=== PATIENT | female | born 1950 | race Caucasian/White ===

== ENCOUNTER 2020-04-06 14:16 | Outpatient (CLI) | payer MEDICARE, OTHER, SELFPAY ==
[2020-04-06 15:12] LABS: Add Urine Microscopic? YES; Appearance Urine Clear (Clear); Bacteria Urine Trace /hpf; Bilirubin Urine Negative (Negative); Blood Urine Negative (Negative); Color Urine Amber (Yellow); Glucose Urine UA Negative (Negative); Ketones Urine Trace mg/dL (Negative); Leukocyte Esterase Ur Negative LEU/UL (Negative); Mucus Urine Rare /lpf; Nitrate Urine Negative (Negative); Protein Urine Negative (Negative); RBC Urine 0-2 /hpf (0-2); Specific Grav Ur 1.018 (1.001-1.035); Squamous Epithelial Cell Urine Few /hpf (Few); WBC Urine 0-3 /hpf
[2020-04-06 15:32] LABS: Basophils Percent Auto 0.3 % (0.2-1.2); Eosinophils Percent Auto 0.7 % (0-4.4); Hematocrit 40.9 % (37.0-47.0); Hemoglobin 14.2 g/dL (12.0-15.0); Immature Granulocyte Absolute 0.02 K/mm3 (0.00-0.031); Immature Granulocyte Percent A 0.3 % (0-0.5); Lymphocytes Absolute Auto 1.05 K/mm3 (0.9-3.2); Lymphocytes Percent Auto 17.9 % (18.3-44.2); Mean Corpuscular HGB Conc 34.7 g/dl (32-36); Mean Corpuscular Hemoglobin 34.3 pg (26-34); Mean Corpuscular Volume 98.8 fl (80-100); Mean Platelet Volume 10.1 fl (7.4-10.4); Monocytes Absolute Auto 0.9 K/mm3 (0.1-0.6); Neutrophils Absolute Auto 3.8 K/mm3 (1.3-6.7); Neutrophils Percent Auto 65.8 % (45.5-73.1); Platelet Count Result 239 k/mm3 (150-375); Red Blood Count 4.14 M/mm3 (4.2-5.4); Red Cell Distribution Width 13.8 % (11.5-14.5); White Blood Count 5.9 K/mm3 (4.5-10.0)
[2020-04-06 17:30] LABS: Folic Acid 10.7 ng/mL (2.76->20)
== END 2020-04-06 14:17 | disposition home or self-care (01) ==
PROVIDERS: PCP Internal Medicine; Visit Provider Internal Medicine
DX: R30.0 Dysuria (principal); R53.83 Other fatigue
CPT/HCPCS: 36415; 81001; 82607; 82746; 84443; 85025

== ENCOUNTER 2020-05-19 12:25 | Emergency (ER) | payer MEDICARE, OTHER, SELFPAY ==
--- NOTE | ~2020-05-19 | CT_ITS ---
EXAMINATION: CT cervical spine wo con DATE: 05/19/2020 13:16 INDICATION: Head injury. TECHNIQUE: Computed tomography (CT) of the cervical spine was performed without intravenous contrast. Automated exposure control and iterative reconstruction technique were employed. The dose-length pro duct was 124.19 mGy-cm. COMPARISON: CT cervical spine 06/02/2018 FINDINGS: There is mild scarring at the lung apices. There is 12 degrees dextroscoliosis of cervical spine. There is kyphosis of cervical spine. There is 2 mm anterolisthesis of C3 on C4 and C4 on C5. V ertebral body heights are normal. There is mildly decreased disc height at C4-C5 and moderately decre ased disc height at C5-C6. The following disc levels are specifically discussed: C2-C3: There is no uncovertebral joint osteoarthritis. There is ankylosis of the facet joints with mi ld hypertrophy on the right and severe hypertrophy of the left. There is mild left neural foraminal s tenosis. There is no central canal stenosis. C3-C4: There is no uncovertebral joint osteoarthritis. There is severe bilateral facet joint osteoart hritis. There is moderate left neural foraminal stenosis. There is no central canal stenosis. C4-C5: There is no uncovertebral joint osteoarthritis. There is severe bilateral facet joint osteoart hritis. There is mild bilateral neural foraminal stenosis. There is no central canal stenosis. C5-C6: There is moderate and mild left uncovertebral joint osteoarthritis. There is mild right and se darrin left facet joint osteoarthritis. There is mild right and moderate left neural foraminal stenosis . There is no central canal stenosis. C6-C7: There is no uncovertebral joint osteoarthritis. There is no facet joint osteoarthritis. There is no neural foraminal stenosis. There is no central canal stenosis. C7-T1: There is no uncovertebral joint osteoarthritis. There is moderate right and severe left facet joint osteoarthritis. There is no neural foraminal stenosis. There is no central canal stenosis. IMPRESSION: 1. No fracture. 2. Moderate cervical spondylosis. 3. Cervical dextroscoliosis and kyphosis. Reviewed, dictated and finalized at location A.
--- NOTE | ~2020-05-19 | XR_ITS ---
EXAMINATION: XR chest 1V DATE: 05/19/2020 13:19 INDICATION: Shortness of breath post fall TECHNIQUE: frontal view of the chest was obtained. COMPARISON: Chest radiograph dated 07/06/2019 FINDINGS: Right internal jugular central venous port catheter with distal tip at the caudal superior vena cava. No airspace opacities, pulmonary edema, pleural effusion or pneumothorax. The cardiomediastinal silh ouette is normal. Visualized bones and soft tissues are unremarkable. IMPRESSION: 1. No acute cardiopulmonary disease. Reviewed, dictated and finalized at location A.
--- NOTE | ~2020-05-19 | CT_ITS ---
EXAMINATION: CT brain wo con DATE: 05/19/2020 13:13 INDICATION: Dizziness. Head injury. Multiple sclerosis. TECHNIQUE: Computed tomography (CT) of the head was performed without intravenous contrast. The mA wa s adjusted according to patient size. Iterative reconstruction technique was employed. The dose-lengt h product was 605.33 mGy-cm. COMPARISON: Head CT 07/06/2019 FINDINGS: There are scattered areas of low attenuation in the cerebral white matter. There is no intracranial h emorrhage, acute infarction, or abnormal intracranial mass lesion. The ventricles are normal in size. There is a right posterior scalp hematoma. The orbits are normal. There is mild mucosal thickening i n the paranasal sinuses. There is sclerosis of the solis of left sphenoid sinus, consistent with legal stenographer carmella sinusitis. The mastoid air cells are normal. IMPRESSION: 1. Stable extensive nonspecific cerebral white matter disease, which likely represents a combination of multiple sclerosis and chronic small vessel ischemic disease. Reviewed, dictated and finalized at location A. IMPRESSION: 1. Stable extensive nonspecific cerebral white matter disease, which likely rep resents a combination of multiple sclerosis and chronic small vessel ischemic d isease.
[2020-05-19 12:33] VITALS: BP 206/112; PULSE 93; RESP 17; TEMP 36.8; O2SAT 96
--- NOTE | 2020-05-19 12:56 | ECG_ITS ---
Measurements Intervals [place] Rate: 71 P: [place]: 0 QRS: 73 QRSD: 80 T: 9 QT: 402 QTc: 439 Interpretive Statements SINUS RHYTHM FREQUENT ATRIAL PREMATURE COMPLEXES VOLTAGE CRITERIA FOR LVH BORDERLINE T WAVE ABNORMALITY- INFERIOR LEADS ABNORMAL ECG Electronically Signed On 05-19-2020 15:32:25 CDT by Edgar Craven D.O.
--- NOTE | 2020-05-19 13:10 | ED.GENADULT ---
HPI - General Adult General Chief complaint: Fall Stated complaint: Fall, head lac Time Seen by Provider: 05/19/20 12:27 Source: patient and family Mode of arrival: ambulatory Limitations: no limitations History of Present Illness HPI narrative: patient is a 69-year-old female who presents with near syncope that occurred today while in the restroom was washing her face when she began to feel near syncopal and became dizzy and fell backwards does not believe she passed out or had complete syncope did strike the posterior aspect of the head without loss of consciousness. On arrival patient notes she does have dizziness and weakness which she attributes to her metastatic cancer for which she is currently not receiving treatments. Patient has not seen her oncologist since the beginning of the year. Related Data Home Medications Medication Instructions Recorded Confirmed aspirin 325 mg tablet,delayed 325 mg PO DAILY 09/17/19 release atorvastatin 40 mg tablet 40 mg PO DAILY 09/17/19 biotin 1 mg capsule 1 mg PO DAILY 09/17/19 clobetasol 0.05 % topical foam 1 applic TOPICAL BID 09/17/19 fluticasone propionate 50 1 spray NASAL DAILY 09/17/19 mcg/actuation nasal spray,suspension garlic 1,000 mg capsule 1,000 mg PO DAILY 09/17/19 ginkgo biloba 60 mg capsule 60 mg PO BID 09/17/19 levothyroxine 50 mcg tablet 50 mcg PO DAILY 09/17/19 nebivolol 20 mg tablet 20 mg PO DAILY 09/17/19 zinc 50 mg tablet 50 mg PO DAILY 09/17/19 clonidine HCl 0.1 mg tablet 0.1 mg PO DAILY PRN 09/20/19 Allergies Allergy/AdvReac Type Severity Reaction Status Date / Time codeine Allergy Severe vomiting, Verified 09/20/19 15:25 pass out, shakes interferon beta-1b Allergy Severe Anaphylactic Verified 09/20/19 15:25 [From Betaseron] Shock Penicillins Allergy Severe swelling Verified 09/20/19 15:25 Review of Systems Review of Systems: All systems reviewed & are unremarkable except as noted in HPI and below PMFSH Social History Social History Smoking packs per day: 0.5 Smoking cigarettes per day: 10.0 Smoking status: Current every day smoker Second hand tobacco smoke exposure: No Alcohol intake: current Substance use: never Exam Narrative: Exam Narrative: GENERAL: Well-appearing, well-nourished, and in no acute distress. HEAD: Normocephalic, small half centimeter superficial linear laceration of the posterior scalp EYES: PERRLA and EOMI. ENT: Nares clear, no rhinorrhea or epistaxis. Mucous membranes moist. Oropharynx without tonsillar hypertrophy exudate or other lesions. NECK: Supple. No adenopathy or masses. CHEST: Clear to auscultation. No respiratory distress. No wheezes rales or rhonchi HEART: Regular rate and rhythm. No murmur heard. Normal peripheral pulses. ABDOMEN: Soft, nontender, nondistended EXTREMITIES: Normal range of motion. No edema. No cervical thoracic or lumbar tenderness SKIN: Warm, dry, no rash. NEURO: No focal deficits. Alert and oriented x3. Cranial nerves II through XII grossly intact. Normal speech PSYCH: Normal mood and affect. Course Course Emergency Course: Patient in the room at this time in no distress able to ambulate without difficulty feeling fine prefers to go home will follow with primary care and specialist patient agreeing to follow-up as directed and will be careful given her chronic dizziness. Patient provided with reasons to return. Patient hydrated and given medications in the emergency department Vital Signs Vital signs: Vital Signs Temperature 98.3 F 05/19/20 12:33 Pulse Rate 93 05/19/20 12:33 Respiratory Rate 17 05/19/20 12:33 Blood Pressure 206/112 H 05/19/20 12:33 Pulse Oximetry 96 05/19/20 12:33 Temperature 98.3 F 05/19/20 12:33 Pulse Rate 77 05/19/20 15:10 Respiratory Rate 16 05/19/20 14:57 Blood Pressure 171/74 H 05/19/20 15:10 Pulse Oximetry 94 05/19/20 14:5
[2020-05-19 13:42] LABS: Basophils Percent Auto 0.4 % (0.2-1.2); Eosinophils Absolute Auto 0.1 K/mm3 (0-0.3); Eosinophils Percent Auto 0.8 % (0-4.4); Hemoglobin 13.2 g/dL (12.0-15.0); Immature Granulocyte Absolute 0.03 K/mm3 (0.00-0.031); Immature Granulocyte Percent A 0.4 % (0-0.5); Lymphocytes Absolute Auto 0.92 K/mm3 (0.9-3.2); Mean Corpuscular HGB Conc 34.7 g/dl (32-36); Mean Corpuscular Hemoglobin 34.2 pg (26-34); Mean Corpuscular Volume 98.4 fl (80-100); Mean Platelet Volume 9.6 fl (7.4-10.4); Monocytes Absolute Auto 0.8 K/mm3 (0.1-0.6); Monocytes Percent Auto 9.9 % (2.6-8.5); Neutrophils Absolute Auto 5.9 K/mm3 (1.3-6.7); Neutrophils Percent Auto 76.5 % (45.5-73.1); Platelet Count Result 232 k/mm3 (150-375); Red Blood Count 3.86 M/mm3 (4.2-5.4); Red Cell Distribution Width 15.5 % (11.5-14.5); White Blood Count 7.7 K/mm3 (4.5-10.0)
[2020-05-19 13:52] LABS: Prothrombin Time 13.2 Seconds (11.1-14.7)
[2020-05-19 13:53] LABS: Partial Thromboplastin Time 28.9 SECONDS (22.3-36.8)
[2020-05-19] MEDS: SODIUM CHLORIDE 0.9% IV 1,000 ML 999 ML IV CONT (13:54)
[2020-05-19 13:55] LABS: Alanine Aminotransferase 38 U/L (4-35); Alkaline Phosphatase 402 U/L (38-126); Aspartate Amino Transferase 45 U/L (14-36); Bilirubin,Total 0.6 mg/dL (0.2-1.3); Blood Urea Nitrogen 16 mg/dL (7-17); Calcium 8.9 mg/dL (8.4-10.2); Carbon Dioxide 27 mmol/L (22-30); Chloride 103 mmol/L (98-107); Estimated Glomerular Filt Rate > 60; Glucose 126 mg/dL (65-105); Potassium 3.5 mmol/L (3.4-5.0); Sodium 137 mmol/L (137-145)
[2020-05-19 14:57] VITALS: BP 163/84; PULSE 75; RESP 16; O2SAT 94
[2020-05-19 15:08] VITALS: BP 170/85; PULSE 73; PULSE 74
[2020-05-19 15:08] LABS: Add Urine Microscopic? YES; Appearance Urine Cloudy (Clear); Bacteria Urine Trace /hpf; Bilirubin Urine 2+ (Negative); Blood Urine 1+ (Negative); Color Urine Yellow (Yellow); Glucose Urine UA Negative (Negative); Hyaline Casts Urine 15-19 /lpf; Ketones Urine Negative (Negative); Leukocyte Esterase Ur Negative LEU/UL (Negative); Mucus Urine Heavy /lpf; Nitrate Urine Negative (Negative); Protein Urine 3+ mg/dL (Negative); RBC Urine >75 /hpf (0-2); Specific Grav Ur 1.037 (1.001-1.035); Squamous Epithelial Cell Urine Few /hpf (Few); Urobilinogen Urine Negative mg/dL (<2.0); WBC Urine >75 /hpf
[2020-05-19 15:10] VITALS: BP 171/74; PULSE 77
[2020-05-19 16:12] VITALS: BP 170/85; PULSE 76; RESP 16; TEMP 36.7; O2SAT 96
== END 2020-05-19 16:14 | disposition home or self-care (01) ==
PROVIDERS: Emergency Medicine Emergency Medical Services; Emergency Provider Emergency Medicine; PCP Internal Medicine
DX: R55 Syncope and collapse (principal); N39.0 Urinary tract infection, site not specified; S09.90XA Unspecified injury of head, initial encounter; F17.210 Nicotine dependence, cigarettes, uncomplicated; Z79.82 Long term (current) use of aspirin; R90.82 White matter disease, unspecified; M47.812 Spondylosis without myelopathy or radiculopathy, cervical region; W18.39XA Other fall on same level, initial encounter; R94.31 Abnormal electrocardiogram [ECG] [EKG]
CPT/HCPCS: 36415; 70450; 71045; 72125; 80053; 81001; 85025; 85610; 85730; 87086; 87088; 93005; 96365; 99284; J0131; J7030

== ENCOUNTER 2020-06-17 09:35 | Emergency (ER) | payer MEDICARE, OTHER, SELFPAY ==
[2020-06-17] VITALS (8 sets, daily range): BP systolic 121–130; BP diastolic 73–85; PULSE 67–78; RESP 14–23; TEMP 36.6–36.8; O2SAT 96–97
--- NOTE | ~2020-06-17 | CT_ITS ---
EXAMINATION: CTA chest PE protocol DATE: 06/17/2020 12:28 INDICATION: Chest pain. Shortness of breath. TECHNIQUE: Computed tomography (CT) pulmonary angiogram of the chest was performed with 100 mL Omnipa que-350 intravenous contrast. Additional 3D reconstructions utilizing coronal maximum intensity proje ction (MIP) were performed. Automated exposure control and iterative reconstruction technique were em ployed. The dose-length product was 161.69 mGy-cm. COMPARISON: CT abdomen and pelvis dated 07/06/2019 FINDINGS: Excellent contrast opacification of the pulmonary arteries. There is mild streak artifact from dense contrast in the superior vena cava and right atrium. Mild scattered respiratory motion artifact most prominent at the left lower lung zone where it mildly decreases sensitivity in some of the smaller lakhani bsegmental pulmonary arteries. No pulmonary embolism. Small bilateral posteriorly layering pleural ef fusions. Mild to moderate emphysema. Compressive atelectasis in the dependent left lower lobe. Biapic al pleural-parenchymal scarring. No pneumonia, suspicious pulmonary nodules or pneumothorax. Heart si ze is normal. Atherosclerotic coronary artery calcific a cyst. Thoracic aorta is normal in caliber wi th no dissection no pathologically enlarged thoracic lymphadenopathy. Numerous enhancing nodules scat tered throughout the liver consistent with metastatic disease. Small spleen which may represent seque la of prior infarct, trauma or surgery. 3.6 x 2.0 cm right adrenal mass consistent with additional me tastatic disease. Small amount of ascites in the upper abdomen. Chronic L1 compression fracture. Ara pherally sclerotic lesions at T3 and T10 consistent with osseous metastatic disease. Right internal j ugular central venous port catheter with distal tip near the superior cavoatrial junction. IMPRESSION: 1. No pulmonary embolism. 2. Ascites and small bilateral pleural effusions. 3. Multiple masses scattered throughout the liver, right adrenal mass and sclerotic lesions at T3 and T10, all consistent with metastatic disease. 4. Mild to moderate emphysema. Reviewed, dictated and finalized at location A. IMPRESSION: 1. No pulmonary embolism. 2. Ascites and small bilateral pleural effusions. 3. Multiple masses scattered throughout the liver, right adrenal mass and scler otic lesions at T3 and T10, all consistent with metastatic disease. 4. Mild to moderate emphysema.
--- NOTE | ~2020-06-17 | XR_ITS ---
XR chest 1V portable 06/17/2020 10:13 Indication: Chest pain and shortness of breath Procedure: AP portable chest Comparison: Comparison to multiple prior studies sequentially, with oldest reviewed study dated 02/23. Findings: Bibasilar airspace disease. Small left pleural effusion. Central venous catheter tip in the SVC. No acute osseous abnormality. There is a expansile lytic lesion of the left third rib anteriorl y Impression: 1: Bibasilar airspace disease which may represent atelectasis and/or pneumonia. 2: Small left pleural effusion. 3: Expansile lytic lesion of the left third rib. Consider metastatic disease and myeloma. Correlate c linically. Reviewed, dictated and finalized at location I. Impression: 1: Bibasilar airspace disease which may represent atelectasis and/or pneumonia. 2: Small left pleural effusion. 3: Expansile lytic lesion of the left third rib. Consider metastatic disease an d myeloma. Correlate clinically.
--- NOTE | 2020-06-17 09:44 | ECG_ITS ---
Measurements Intervals [place] Rate: 77 P: 65 [place]: 177 QRS: 72 QRSD: 86 T: -57 QT: 367 QTc: 416 Interpretive Statements SINUS RHYTHM BORDERLINE ST-T WAVE ABNORMALITY- ANTEROLAT/INF LEADS BASELINE WANDER- II, III BORDERLINE ECG Electronically Signed On 06-17-2020 10:28:05 CDT by Edgar Craven D.O.
[2020-06-17] MEDS: MORPHINE SULFATE 4 MG/ML INJ IV PUSH (10:20)
[2020-06-17 10:31] LABS: Basophils Percent Auto 0.2 % (0.2-1.2); Eosinophils Percent Auto 0.2 % (0-4.4); Hematocrit 39.9 % (37.0-47.0); Hemoglobin 13.5 g/dL (12.0-15.0); Immature Granulocyte Absolute 0.04 K/mm3 (0.00-0.031); Immature Granulocyte Percent A 0.5 % (0-0.5); Lymphocytes Absolute Auto 0.74 K/mm3 (0.9-3.2); Lymphocytes Percent Auto 9.1 % (18.3-44.2); Mean Corpuscular HGB Conc 33.8 g/dl (32-36); Mean Corpuscular Hemoglobin 32.8 pg (26-34); Mean Corpuscular Volume 97.1 fl (80-100); Mean Platelet Volume 9.8 fl (7.4-10.4); Monocytes Absolute Auto 0.7 K/mm3 (0.1-0.6); Neutrophils Absolute Auto 6.7 K/mm3 (1.3-6.7); Platelet Count Result 336 k/mm3 (150-375); Red Blood Count 4.11 M/mm3 (4.2-5.4); Red Cell Distribution Width 15.3 % (11.5-14.5); White Blood Count 8.1 K/mm3 (4.5-10.0)
[2020-06-17 10:39] LABS: Anion Gap 7 mmol/L (8-16); Blood Urea Nitrogen 21 mg/dL (7-17); Calcium 8.1 mg/dL (8.4-10.2); Carbon Dioxide 30 mmol/L (22-30); Chloride 97 mmol/L (98-107); Estimated CRCL calculation 53 ml/min; Estimated Glomerular Filt Rate > 60; Glucose 161 mg/dL (65-105); Potassium 3.5 mmol/L (3.4-5.0); Sodium 134 mmol/L (137-145)
[2020-06-17 10:41] LABS: INR 1.3; Prothrombin Time 16.1 Seconds (11.1-14.7)
[2020-06-17 10:42] LABS: Partial Thromboplastin Time 40.8 SECONDS (22.3-36.8)
[2020-06-17 10:51] LABS: Troponin I < 0.012 ng/mL (0.000-0.034)
--- NOTE | 2020-06-17 10:56 | ED.GENADULT ---
HPI - General Adult General Chief complaint: Chest Pain Stated complaint: chest pain/sob Time Seen by Provider: 06/17/20 09:39 History of Present Illness HPI narrative: Patient is a 69-year-old female with history of metastatic sarcoid cancer who presents the ER with shortness of breath. Reports really began over the last couple of days. She has shortness of breath when she exerts herself and immense fatigue. She reports some mild chest tightness but no sharp stabbing pain that is radiating. No fevers or chills or sweats. No runny nose/sore throat/productive cough. She has not on any formal chemotherapy at this time for her cancer but does receive monthly octreotide treatment. No alleviating factors. Related Data Home Medications Medication Instructions Recorded Confirmed aspirin 325 mg tablet,delayed 325 mg PO DAILY 09/17/19 release atorvastatin 40 mg tablet 40 mg PO DAILY 09/17/19 biotin 1 mg capsule 1 mg PO DAILY 09/17/19 clobetasol 0.05 % topical foam 1 applic TOPICAL BID 09/17/19 fluticasone propionate 50 1 spray NASAL DAILY 09/17/19 mcg/actuation nasal spray,suspension garlic 1,000 mg capsule 1,000 mg PO DAILY 09/17/19 ginkgo biloba 60 mg capsule 60 mg PO BID 09/17/19 levothyroxine 50 mcg tablet 50 mcg PO DAILY 09/17/19 nebivolol 20 mg tablet 20 mg PO DAILY 09/17/19 zinc 50 mg tablet 50 mg PO DAILY 09/17/19 clonidine HCl 0.1 mg tablet 0.1 mg PO DAILY PRN 09/20/19 Allergies Allergy/AdvReac Type Severity Reaction Status Date / Time codeine Allergy Severe vomiting, Verified 06/17/20 10:10 pass out, shakes interferon beta-1b Allergy Severe Anaphylactic Verified 06/17/20 10:10 [From Betaseron] Shock Penicillins Allergy Severe swelling Verified 06/17/20 10:10 Review of Systems Review of Systems: All systems reviewed & are unremarkable except as noted in HPI and below Constitutional: Constitutional: Denies chills, Reports fatigue, Denies fever(s) and Reports weakness ENT: Denies nasal congestion and Denies sore throat Cardiovascular: Cardiovascular: Reports chest pain, Denies rapid heart rate and Denies radiating jaw, neck or arm pain Respiratory: Respiratory: Denies chest congestion, Denies cough, Reports dyspnea and Denies wheezing Gastrointestinal: Gastrointestinal: Denies abdominal pain, Denies diarrhea, Denies nausea and Denies vomiting PMFSH Social History Social History Smoking packs per day: 0.5 Smoking cigarettes per day: 10.0 Smoking status: Current every day smoker Second hand tobacco smoke exposure: No Alcohol intake: current Substance use: never Gender identity (if verbalized by the patient): Female Exam Narrative: Exam Narrative: GENERAL: Well-appearing, well-nourished, and in no acute distress. HEAD: Normocephalic, atraumatic. ENT: Mucous membranes moist. CHEST: Clear to auscultation. No respiratory distress. HEART: Regular rate and rhythm. Normal peripheral pulses. ABDOMEN: Soft, mild diffuse discomfort with palable masses. EXTREMITIES: Normal range of motion. No edema. SKIN: Warm, dry, no rash. NEURO: Alert and oriented x3. PSYCH: Normal mood and affect. Course Course Emergency Course: Troponins negative x2. Patient feels better. Does not want to stay in the hospital given current COVID pandemic and her being immunocompromise from cancer. Recommend follow-up with her PCP. May benefit from therapeutic tap of her abdomen. A lot of her feeling fatigue may actually be coming from her overall medical condition in general. Chest pain free. Vital Signs Vital signs: Vital Signs Temperature 97.8 F 06/17/20 09:37 Pulse Rate 78 06/17/20 09:37 Respiratory Rate 23 H 06/17/20 09:37 Blood Pressure 129/81 06/17/20 09:37 Pulse Oximetry 96 06/17/20 09:37 Temperature 97.8 F 06/17/20 14:48 Pulse Rate 67 06/17/20 14:48 Respiratory Rate 14 06/17/20 14:48 Blood Press
[2020-06-17] MEDS: ONDANSETRON INJ 4 MG/2 ML VIAL IV PUSH (12:00)
[2020-06-17 14:39] LABS: Troponin I < 0.012 ng/mL (0.000-0.034)
[2020-06-17] MEDS: HEPARIN SOD FLUSH 500 UNITS/5 ML SYRINGE (15:43)
--- NOTE | 2020-06-17 15:43 | PC.NURSE ---
port deacessed per policy prior to leaving the ED
== END 2020-06-17 15:46 | disposition home or self-care (01) ==
PROVIDERS: Emergency Provider Emergency Medicine; PCP Internal Medicine
DX: R18.8 Other ascites (principal); R53.1 Weakness; D86.9 Sarcoidosis, unspecified; Z79.82 Long term (current) use of aspirin; C78.7 Secondary malignant neoplasm of liver and intrahepatic bile duct; C79.51 Secondary malignant neoplasm of bone; C79.71 Secondary malignant neoplasm of right adrenal gland; F17.210 Nicotine dependence, cigarettes, uncomplicated; J43.9 Emphysema, unspecified; R94.31 Abnormal electrocardiogram [ECG] [EKG]; R91.8 Other nonspecific abnormal finding of lung field
CPT/HCPCS: 36415; 71045; 71275; 80048; 84484; 85025; 85610; 85730; 93005; 96374; 96375; 99284; J2270; J2405; Q9967

== ENCOUNTER 2020-07-03 10:49 | Emergency (ER) | payer MEDICARE, OTHER, SELFPAY ==
--- NOTE | ~2020-07-03 | XR_ITS ---
EXAMINATION: XR chest 2V EXAM DATE: 07/03/2020 12:03 INDICATION: Shortness of breath. History of liver cancer. TECHNIQUE: Frontal and lateral projections of the chest obtained and reviewed. Comparison is made to prior examination from 06/17/2020. FINDINGS: There is right-sided portacatheter. Chronic small left pleural effusion some hyperinflatio n. No pneumothorax or confluent consolidation. No acute findings or interval change. IMPRESSION: 1. Small left pleural effusion. 2. Hyperinflation. 3. No acute findings or interval change. Reviewed, dictated and finalized at location A.
[2020-07-03 11:00] VITALS: BP 112/75; PULSE 96; RESP 20; TEMP 35.9; O2SAT 97
--- NOTE | 2020-07-03 11:19 | ECG_ITS ---
Measurements Intervals [place] Rate: 89 P: 57 CT: 166 QRS: 78 QRSD: 86 T: -76 QT: 340 QTc: 414 Interpretive Statements SINUS RHYTHM ATRIAL COUPLET AND FREQUENT ATRIAL PREMATURE COMPLEXES CANNOT RULE OUT SEPTAL INFARCT, AGE INDETERMINATE BORDERLINE ST-T WAVE ABNORMALITY- DIFFUSE LEADS BASELINE WANDER- II, III, AVR, AVL, AVF ABNORMAL ECG Electronically Signed On 07-03-2020 11:57:41 CDT by Edgar Craven D.O.
--- NOTE | 2020-07-03 11:25 | ED.DIZZY ---
HPI - Dizziness General Chief Complaint: Dizziness Stated Complaint: dehydrated Time Seen by Provider: 07/03/20 11:24 History of Present Illness HPI Narrative: She has terminal cancer of the liver for which she is seen at [place]. This has lead to loss of appetite and continuous abdominal pain. Due to poor PO intake she feels that she has become very dehydrated. This is associated with generalized weakness and light headedness. She takes morphine for the pain. She has a follow-up appointment in a few days with her oncologist. Related Data Home Medications Medication Instructions Recorded Confirmed aspirin 325 mg tablet,delayed 325 mg PO DAILY 09/17/19 release atorvastatin 40 mg tablet 40 mg PO DAILY 09/17/19 biotin 1 mg capsule 1 mg PO DAILY 09/17/19 garlic 1,000 mg capsule 1,000 mg PO DAILY 09/17/19 levothyroxine 50 mcg tablet 50 mcg PO DAILY 09/17/19 zinc 50 mg tablet 50 mg PO DAILY 09/17/19 clonidine HCl 0.1 mg tablet See Rx Instructions .ROUTE 09/20/19 .COMPLEX PRN Allergies Allergy/AdvReac Type Severity Reaction Status Date / Time codeine Allergy Severe vomiting, Verified 07/03/20 11:08 pass out, shakes interferon beta-1b Allergy Severe Anaphylactic Verified 07/03/20 11:08 [From Betaseron] Shock Penicillins Allergy Severe swelling Verified 07/03/20 11:08 Review of Systems Review of Systems: All systems reviewed & are unremarkable except as noted in HPI and below Constitutional: Constitutional: Denies chills, Reports fatigue, Denies fever(s) and Reports weakness ENT: Denies dysphagia and Reports dizziness Cardiovascular: Cardiovascular: Denies chest pain Respiratory: Respiratory: Denies dyspnea Gastrointestinal: Gastrointestinal: Reports abdominal pain, Denies diarrhea, Reports nausea and Denies vomiting Genitourinary: Genitourinary: Denies dysuria Neurologic: Denies syncope [facility] Past Medical History Medical History Cancer Carcinoid tumor Essential (primary) hypertension Fatigue Multiple sclerosis Small bowel cancer Family History Family History Father Patient's father is Family history of malignant neoplasm Social History Social History Smoking packs per day: 0.5 Smoking cigarettes per day: 10.0 Smoking status: Current every day smoker Second hand tobacco smoke exposure: No Alcohol intake: current Substance use: never Gender identity (if verbalized by the patient): Female Exam Const: General: no acute distress, alert and ill appearing chronically Orientation/consciousness: patient oriented x3 HENMT: Mouth: Yes dry mucous membranes Resp: Effort & Inspection: normal respiratory effort Auscultation: clear to auscultation bilaterally Cardio: Rate: regular rate Rhythm: regular rhythm GI: Inspection: non-distended Other: Nontender Skin: General skin exam: normal color Neuro: General: patient oriented x3 and moves all extremities Speech: normal speech Course Vital Signs Vital signs: Vital Signs Temperature 35.9 C L 07/03/20 11:00 Pulse Rate 96 07/03/20 11:00 Respiratory Rate 20 07/03/20 11:00 Blood Pressure 112/75 07/03/20 11:00 Pulse Oximetry 97 07/03/20 11:00 Temperature 35.9 C L 07/03/20 11:00 Pulse Rate 88 07/03/20 14:20 Respiratory Rate 16 07/03/20 14:20 Blood Pressure 139/96 H 07/03/20 14:20 Pulse Oximetry 95 07/03/20 14:20 MDM - Dizziness MDM Narrative Medical decision making narrative: Feeling much improved and ready for discharge after fluids. Medical Records Attestation: I reviewed the patient's medical records. Lab Data Attestation: I reviewed the patient's lab results. Result diagrams: 07/03/20 11:26 07/03/20 11:26 Labs: Lab Results 07/03/20 07/03/20
[2020-07-03 11:30] VITALS: BP 151/98; PULSE 88; RESP 22; O2SAT 96
[2020-07-03 11:36] LABS: Basophils Percent Auto 0.3 % (0.2-1.2); Eosinophils Percent Auto 0.1 % (0-4.4); Hematocrit 39.1 % (37.0-47.0); Hemoglobin 13.8 g/dL (12.0-15.0); Immature Granulocyte Absolute 0.03 K/mm3 (0.00-0.031); Immature Granulocyte Percent A 0.3 % (0-0.5); Lymphocytes Absolute Auto 0.98 K/mm3 (0.9-3.2); Lymphocytes Percent Auto 10.6 % (18.3-44.2); Mean Corpuscular HGB Conc 35.3 g/dl (32-36); Mean Corpuscular Hemoglobin 32.5 pg (26-34); Mean Corpuscular Volume 92.2 fl (80-100); Mean Platelet Volume 10.4 fl (7.4-10.4); Monocytes Absolute Auto 0.6 K/mm3 (0.1-0.6); Monocytes Percent Auto 6.1 % (2.6-8.5); Neutrophils Absolute Auto 7.7 K/mm3 (1.3-6.7); Neutrophils Percent Auto 82.6 % (45.5-73.1); Platelet Count Result 318 k/mm3 (150-375); Red Blood Count 4.24 M/mm3 (4.2-5.4); Red Cell Distribution Width 17.3 % (11.5-14.5); White Blood Count 9.3 K/mm3 (4.5-10.0)
[2020-07-03 11:49] LABS: Add Urine Microscopic? YES; Appearance Urine Cloudy (Clear); Bacteria Urine 4+ /hpf; Bilirubin Urine 1+ (Negative); Blood Urine 1+ (Negative); Color Urine Amber (Yellow); Glucose Urine UA Negative (Negative); Ketones Urine Negative (Negative); Leukocyte Esterase Ur 2+ LEU/UL (Negative); Mucus Urine Heavy /lpf; Nitrate Urine Positive (Negative); Protein Urine 1+ mg/dL (Negative); Squamous Epithelial Cell Urine Many /hpf (Few); WBC Urine 21-30 /hpf
[2020-07-03 11:51] LABS: Alanine Aminotransferase 14 U/L (4-35); Albumin Level 3.3 g/dL (3.5-5.1); Alkaline Phosphatase 532 U/L (38-126); Anion Gap 10 mmol/L (8-16); Aspartate Amino Transferase 31 U/L (14-36); Bilirubin,Total 2.3 mg/dL (0.2-1.3); Blood Urea Nitrogen 26 mg/dL (7-17); Calcium 8.4 mg/dL (8.4-10.2); Carbon Dioxide 26 mmol/L (22-30); Chloride 98 mmol/L (98-107); Estimated CRCL calculation 40 ml/min; Estimated Glomerular Filt Rate 49; Glucose 128 mg/dL (65-105); Potassium 3.8 mmol/L (3.4-5.0); Sodium 134 mmol/L (137-145)
--- NOTE | 2020-07-03 12:20 | PC.NURSE ---
spoke with bob pope about bolus of dextrose and saline, erp confirms medication order.
[2020-07-03 12:34] VITALS: BP 159/97; PULSE 90; RESP 12; O2SAT 97
[2020-07-03] MEDS: DEXTROSE 5%/0.45% SOD CHL 1,000 ML 1000 ML IV CONT (12:39)
[2020-07-03 12:57] VITALS: BP 137/86; PULSE 77; RESP 16; O2SAT 93
[2020-07-03 14:20] VITALS: BP 139/96; PULSE 88; RESP 16; O2SAT 95
== END 2020-07-03 14:20 | disposition home or self-care (01) ==
PROVIDERS: Emergency Provider Emergency Medicine; PCP Internal Medicine
DX: E86.0 Dehydration (principal); N39.0 Urinary tract infection, site not specified; C7A.019 Malignant carcinoid tumor of the small intestine, unspecified portion; C78.7 Secondary malignant neoplasm of liver and intrahepatic bile duct; I10 Essential (primary) hypertension; G35 Multiple sclerosis; F17.210 Nicotine dependence, cigarettes, uncomplicated; Z79.82 Long term (current) use of aspirin; I25.10 Atherosclerotic heart disease of native coronary artery without angina pectoris; Z95.5 Presence of coronary angioplasty implant and graft; E78.5 Hyperlipidemia, unspecified; E03.9 Hypothyroidism, unspecified; G47.33 Obstructive sleep apnea (adult) (pediatric); Z87.19 Personal history of other diseases of the digestive system; R00.8 Other abnormalities of heart beat; I49.1 Atrial premature depolarization; R94.31 Abnormal electrocardiogram [ECG] [EKG]
CPT/HCPCS: 36415; 71046; 80053; 81001; 85025; 87077; 87086; 87088; 87186; 93005; 96365; 99284; J0696

== ENCOUNTER 2020-07-08 13:34 | Observation (INO) | payer MEDICARE, OTHER, SELFPAY ==
--- NOTE | ~2020-07-08 | XR_ITS ---
XR chest 2V 07/08/2020 14:41 Indication: Nausea and vomiting. Dyspnea. Procedure: AP and lateral views of the chest Comparison: Comparison to multiple prior studies sequentially, with oldest reviewed study dated 06/2020. Findings: Progression of left lower lobe pneumonia. Small pleural effusions, left greater than right. Heart size normal. Portacatheter tip in the SVC. There is chronic apical pleural thickening. No acut e osseous abnormality. Impression: 1: Progression of left lower lobe pneumonia with small pleural effusions. Reviewed, dictated and finalized at location A. Impression: 1: Progression of left lower lobe pneumonia with small pleural effusions.
--- NOTE | 2020-07-08 13:53 | PC.NURSE ---
Patient's son brings patient to desk to report chest pain. PAtient taken back for ekg and blood draw at this time.
--- NOTE | 2020-07-08 13:54 | ECG_ITS ---
Measurements Intervals [place] Rate: 117 P: 75 [place]: 180 QRS: 49 QRSD: 90 T: 94 QT: 430 QTc: 601 Interpretive Statements SINUS TACHYCARDIA POSSIBLE LEFT ATRIAL ENLARGEMENT BORDERLINE ST-T WAVE ABNORMALITY- DIFFUSE LEADS ABNORMAL ECG Electronically Signed On 07-08-2020 15:00:49 CDT by Edgar Craven D.O.
[2020-07-08 14:17] VITALS: BP 96/66; PULSE 102; RESP 20; TEMP 36.5; O2SAT 95
[2020-07-08 14:26] LABS: Basophils Percent Auto 0.5 % (0.2-1.2); Eosinophils Percent Auto 0.2 % (0-4.4); Hematocrit 41.5 % (37.0-47.0); Hemoglobin 14.4 g/dL (12.0-15.0); Immature Granulocyte Absolute 0.04 K/mm3 (0.00-0.031); Immature Granulocyte Percent A 0.5 % (0-0.5); Lymphocytes Percent Auto 9.3 % (18.3-44.2); Mean Corpuscular HGB Conc 34.7 g/dl (32-36); Mean Corpuscular Hemoglobin 32.4 pg (26-34); Mean Corpuscular Volume 93.5 fl (80-100); Mean Platelet Volume 10.7 fl (7.4-10.4); Monocytes Absolute Auto 0.5 K/mm3 (0.1-0.6); Neutrophils Absolute Auto 7.2 K/mm3 (1.3-6.7); Neutrophils Percent Auto 83.5 % (45.5-73.1); Platelet Count Result 256 k/mm3 (150-375); Red Blood Count 4.44 M/mm3 (4.2-5.4); Red Cell Distribution Width 18.4 % (11.5-14.5); White Blood Count 8.6 K/mm3 (4.5-10.0)
[2020-07-08 14:36] LABS: INR 1.4; Prothrombin Time 16.5 Seconds (11.1-14.7)
[2020-07-08 14:39] LABS: Anion Gap 9 mmol/L (8-16); Blood Urea Nitrogen 23 mg/dL (7-17); Calcium 8.7 mg/dL (8.4-10.2); Carbon Dioxide 25 mmol/L (22-30); Chloride 101 mmol/L (98-107); Estimated CRCL calculation 38 ml/min; Estimated Glomerular Filt Rate 55; Glucose 128 mg/dL (65-105); Sodium 135 mmol/L (137-145)
[2020-07-08 14:50] LABS: Troponin I < 0.012 ng/mL (0.000-0.034)
--- NOTE | 2020-07-08 15:29 | ED.CHESTPAIN ---
HPI - Chest Pain General Chief Complaint: Chest Pain Stated Complaint: deyhdration Time Seen by Provider: 07/08/20 15:28 Source: patient and family Mode of arrival: wheelchair Limitations: no limitations History of Present Illness HPI narrative: Patient is a 69-year-old female with a history of metastatic carcinoid tumor not currently undergoing any active chemotherapy or radiation who presents for evaluation of weakness, intermittent chest pain, anxiety, dehydration. Patient and son are present to help provide history. Patient's son states she has been able to tolerate any oral intake over the past 4 to 5 days. She has had multiple bouts of nausea and emesis. No fever, cough or shortness of breath. Patient has not had any discussions with anyone regarding hospice care, but family is interested in hearing about this. No recent loss of sense of taste or smell. No recent sick contacts. No diarrhea. Patient reported some chest pain earlier, but denies any currently. She attributes her chest pain to some anxiety. Patient is DNR. Related Data Home Medications Medication Instructions Recorded Confirmed aspirin 325 mg tablet,delayed 325 mg PO DAILY 09/17/19 release atorvastatin 40 mg tablet 40 mg PO DAILY 09/17/19 biotin 1 mg capsule 1 mg PO DAILY 09/17/19 garlic 1,000 mg capsule 1,000 mg PO DAILY 09/17/19 levothyroxine 50 mcg tablet 50 mcg PO DAILY 09/17/19 zinc 50 mg tablet 50 mg PO DAILY 09/17/19 clonidine HCl 0.1 mg tablet See Rx Instructions .ROUTE 09/20/19 .COMPLEX PRN Allergies Allergy/AdvReac Type Severity Reaction Status Date / Time codeine Allergy Severe vomiting, Verified 07/03/20 11:08 pass out, shakes interferon beta-1b Allergy Severe Anaphylactic Verified 07/03/20 11:08 [From Betaseron] Shock Penicillins Allergy Severe swelling Verified 07/03/20 11:08 Review of Systems Review of Systems: Narrative: CONSTITUTIONAL: Denies fever, chills, or sweats. ENT: Denies rhinorrhea, congestion, sore throat, or otalgia. CARDIOVASCULAR: Denies current chest pain, palpitations, or edema. RESPIRATORY: Denies cough or dyspnea. GASTROINTESTINAL: Denies abdominal pain, reports nausea and vomiting GENITOURINARY: Denies dysuria or hematuria. SKIN: Denies rash or itching. MUSCULOSKELETAL: Denies back pain, joint pain, or myalgia. NEUROLOGIC: Denies headache, numbness, reports feeling diffusely weak PSYCHIATRIC: Reports anxiety PMFSH Past Medical History Medical History Cancer Carcinoid tumor Essential (primary) hypertension Fatigue Multiple sclerosis Small bowel cancer Social History Social History Smoking packs per day: 0.5 Smoking cigarettes per day: 10.0 Smoking status: Current every day smoker Second hand tobacco smoke exposure: No Alcohol intake: current Substance use: never Gender identity (if verbalized by the patient): Female Exam Narrative: Exam Narrative: GENERAL: Sleepy, easily aroused. Chronically ill-appearing, thin HEAD: Normocephalic, atraumatic. EYES: PERRLA and EOMI. ENT: Nares clear, no rhinorrhea or epistaxis. Mucous membranes dry NECK: Supple. CHEST: No respiratory distress, breathing even and non labored HEART: Regular rate, sinus rhythm ABDOMEN:Non distended, non tender EXTREMITIES: Normal range of motion. No edema. SKIN: Warm, dry, no rash. NEURO:No focal deficits. Alert and oriented x3 Course Vital Signs Vital signs: Vital Signs Temperature 36.5 C 07/08/20 14:17 Pulse Rate 102 H 07/08/20 14:17 Respiratory Rate 07/08/20 14:17 Blood Pressure 96/66 L 07/08/20 14:17 Pulse Oximetry 95 07/08/20 14:17 Temperature 36.5 C 07/08/20 14:17 Pulse Rate 102 H 07/08/20 14:17 Respiratory Rate 07/08/20 14:17 Blood Pressure 96/66 L 07/08/20 14:17 Pulse Oximetry 95 07/08/20 14:17 MDM - Chest Pain MDM Narr
[2020-07-08 16:00] VITALS: BP 144/87; PULSE 87; RESP 16; O2SAT 97
[2020-07-08] MEDS: ONDANSETRON INJ 4 MG/2 ML VIAL IV PUSH (16:24)
[2020-07-08] MEDS: METOCLOPRAMIDE HCL INJ 10 MG/2 ML VIAL IV PUSH (16:24)
[2020-07-08] MEDS: MORPHINE SULFATE 4 MG/ML INJ 2 MG IV PUSH (16:25)
[2020-07-08] MEDS: SODIUM CHLORIDE 0.9% IV 1,000 ML 999 ML IV CONT (16:26)
--- NOTE | 2020-07-08 16:36 | PC.NURSE ---
Spoke with [facility] for eval. Pt's son gave his information as the primary contact for hospice. Royer Jackson [phone]
[2020-07-08 17:40] VITALS: BP 152/83; PULSE 97; RESP 16; O2SAT 97
--- NOTE | 2020-07-08 18:00 | PC.NURSE ---
This patient, Oriana Gupta, was admitted to 2 Medical Room 248-01. Patient/family oriented to hospital policies and general routines including ID bracelet, bed and alarms, visiting hours, pain management, procedures, bathroom and other care routines, personal items, smoking policy, room service/diet, and visiting hours. Valuables list has been completed. Information on how to activate the Rapid Response Team has been discussed. Patient/Family are encouraged to report perceived risks to care and to ask questions if they do not understand what they are told or what they should do.
[2020-07-08 18:14] VITALS: BP 153/78; PULSE 80; RESP 15; TEMP 36.6; O2SAT 95; BMI 21.8
[2020-07-08] MEDS: SODIUM CHLORIDE 0.9% IV 1,000 ML 125 ML IV CONT (18:26)
[2020-07-08 22:00] VITALS: BP 159/82; PULSE 75; RESP 18; TEMP 36; O2SAT 95
--- NOTE | 2020-07-08 23:54 | PM.IMHP ---
H&P: HPI History of Present Illness Date/Time: 07/08/20 23:54 Chief complaint: pneumonia, dehydration Narrative: Oriana Gupta is a 69 year old female Who has a history of metastatic carcinoid tumor. Patient stated that her cancers everywhere in her abdomen is tight and distended and that her liver is full of tumors. The patient has had a poor appetite she has been nauseated she has nausea medicine and pain medicine at home but just has had a poor appetite she also uses supplements as well. The Avi tells me that she will get IV fluids maybe once a week through [facility]. They have considered hospice however the patient has been getting IV fluids approximately once a week. The patient tells me that she really isn't that uncomfortable. She does have morphine that she uses at home. I found her morphine does on her records from December when she is all Cardiology. The believes this is correct but he will bring in the medications to verify them tomorrow. We talked about pain management and they are okay with p.r.n. morphine and Ativan. At this time they do not want to do hospice because she typically gets IV fluids to the [facility] once a week. She has been very weak. Her Avi stated that she does not typically do a whole lot and that she is in bed typically and she will get up with assistance to the bathroom but she typically does not go anywhere except if she is going to the doctor's office. she has not had any fever chills. Chest x-ray was read as progression of left lower lobe pneumonia with small pleural effusions. I reviewed the x-ray and a really was not impressed. However she did have a chest x-ray from 5 days ago. This also noted small left pleural effusion and hyperinflation. I had a discussion with the patient and her and they would prefer to go ahead with antibiotics at this time. So started on azithromycin. The patient does have allergies to penicillin which are severe but she is able to tolerate Azithromycin. Patient is on nitro fair joint for a urinary tract infection that was discovered on 07/03/2020. I am wondering if this made her more sick to her stomach. She was started on IV fluids given IV morphine aspirin and Zofran in the emergency room. Date of service 07/08/2020 Review of Systems Review of Systems: All systems reviewed & are unremarkable except as noted in HPI and below Constitutional: Constitutional: Reports as per HPI and Reports no additional constitutional complaints Eyes: Eyes: Reports as per HPI and Reports no additional eye complaints ENT: Reports system reviewed and no additional complaints, except as documented and Reports Normal hearing present Cardiovascular: Cardiovascular: Reports no additional cardiovascular complaints Respiratory: Respiratory: Reports no additional respiratory complaints and Reports no additional respiratory complaints Gastrointestinal: Gastrointestinal: Reports as per HPI and Reports no additional gastrointestinal complaints Musculoskeletal: Musculoskeletal: Reports no additional musculoskeletal complaints Integumentary/Breasts: Skin/Breast: Reports system reviewed and no additional complaints, except as docu and Reports as per HPI Neurologic: Reports system reviewed and no additional complaints, except as documented, Reports as per HPI and Reports Normal hearing present Psychiatric: Psychiatric: Reports no additional psychiatric complaints and Reports as per HPI Endocrine: Endocrine: Reports no additional endocrine complaints Hematologic/Lymphatic: Hematologic/Lymphatic: Reports no additional hematologic/lymphatic complaints Allergic/Immunologic: Allergic/Immunologic: Reports no additional allergic/immunologic complaints [facility] Past Medical History Medical History (Updated 07/09/20 @ 00:05 by Tisha Funes NP) Anemia CAD (coronary artery disease) history of 1 cardiac stent Cancer Carcinoid tumor Essential (p
[2020-07-09] MEDS: SODIUM CHLORIDE 0.9% IV 1,000 ML 125 ML IV CONT ×2 (02:17→09:37)
[2020-07-09] MEDS: LEVOTHYROXINE SODIUM 50 MCG TABLET PO (05:31)
[2020-07-09 06:00] VITALS: BP 132/70; PULSE 79; RESP 18; TEMP 36.4; O2SAT 95
--- NOTE | 2020-07-09 06:45 | PC.NURSE ---
Attempted to place mendes cath and was unable to successfully place mendes at this time. Will see if day charge operator Joy K will try to place Mendes.
[2020-07-09] MEDS: MORPHINE SULFATE 2 MG/ML INJ IV PUSH ×6 (07:48→23:36)
[2020-07-09] MEDS: NITROFURANTOIN MONOHYD MACROCR 100 MG CAP PO ×2 (07:49→19:09)
[2020-07-09] MEDS: ZINC SULFATE 220 MG CAPSULE PO (09:35)
[2020-07-09] MEDS: ASPIRIN 325 MG ENTERIC TABLET PO (09:35)
[2020-07-09] MEDS: LOSARTAN POTASSIUM 100 MG TABLET PO (09:35)
--- NOTE | 2020-07-09 13:29 | WPDURCON ---
Assessment and Plan Assessment and plan (1) Urinary incontinence: Code(s): R32 - Unspecified urinary incontinence Status: Acute (2) Fecal incontinence: Code(s): R15.9 - Full incontinence of feces Status: Acute (3) Carcinoid tumor: Qualifiers: Carcinoid tumor malignancy status: malignant Carcinoid tumor location: small intestine Code(s): D3A.00 - Benign carcinoid tumor of unspecified site Status: Acute Additional Plan I believe the carcinoid tumor is involving an extensive amount of her abdomen and pelvis which was the reason for the reading of 400ml on bladder scan Mendes placed in proper position Will check CT at [place] done 2 weeks ago No evidence of renal failure given the creatinine of 1 on admission Urology Consult Note HPI Date Seen: 07/09/20 Requesting Physician: Shaila López MD Primary Care Provider: Cody Cortés DO Consult Narrative Narrative: Oriana Gupta is a 69 year old female admitted with dehydration thru the ER. Patient has metastatic bowel cancer (carcinoid). Has been getting treatment at [facility] once a week. Admitted to hospital for dehydration. Nursing staff placed a mendes for UOP management and had 100ml in return but bladder scan noted 400ml. Urology consulted to assess mendes placement. Patient noted urinary and fecal incontinence at home. This requires 10 diaper changes per day. Denies hematuria. Has had UTIs previously. Review of Systems Review of Systems: All systems reviewed & are unremarkable except as noted in HPI and below PMFSH Past Medical History Medical History (Updated 07/09/20 @ 13:34 by Scott Araujo MD) Anemia CAD (coronary artery disease) history of 1 cardiac stent Cancer Carcinoid tumor Essential (primary) hypertension Fatigue History of GI bleed Hyperlipidemia Hypothyroidism Multiple sclerosis Obstructive sleep apnea does not use a CPAP machine Port-A-Cath in place Small bowel cancer Surgical History Surgical History (Updated 07/09/20 @ 00:05 by Tisha Funes NP) H/O heart artery stent x1 H/O: hysterectomy History of rectal polypectomy Family History Family History Father Family history of malignant neoplasm Patient's father is Acute myocardial infarction Diabetes mellitus Hypertension Social History Social History (Updated 08/30/20 @ 00:07 by Tisha Funes NP) Social History: the patient is to Avi. He is a durable power assistant city attorney for healthcare. She desires to be a DNR. The patient still continues to smoke. Some days she does not smoke at all but sometimes it is a half pack a cigarettes a day. Occasionally drinks alcohol. 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 She has 2 children a boy and a girl. Smoking packs per day: 0.5 Smoking cigarettes per day: 10.0 Years smoked: 20 Smoking pack-years: 10.00 Smoking status: Current every day smoker Tobacco type: cigarettes Second hand tobacco smoke exposure: No Alcohol intake: former Substance use: never Gender identity (if verbalized by the patient): Female Spiritual care concerns: No Meds Home Medications and Allergies Home Medications Medication Instructions Recorded Confirmed Type aspirin 325 mg tablet,delayed 325 mg PO DAILY 09/17/19 07/08/20 History release atorvastatin 40 mg tablet 40 mg PO DAILY 09/17/19 07/08/20 History biotin 1 mg capsule 1 mg PO DAILY 09/17/19 07/08/20 History garlic 1,000 mg capsule 1,000 mg PO DAILY 09/17/19 07/08/20 History levothyroxine 50 mcg tablet 50 mcg PO DAILY 09/17/19 07/08/20 History lutein 20 mg tablet 20 mg PO DAILY #30 tablet 09/17/19 07/08/20 Rx nitroglycerin 400 mcg/spray 1 spray SUBLINGUAL ONCE #4.9 gm 09/17/19 07/08/20 Rx translingual zinc 50 mg tablet 50 mg PO DAILY 09/17/19 07/08/20 History clonidine HCl 0.1 mg tablet See
[2020-07-09 14:00] VITALS: BP 153/89; PULSE 77; RESP 19; TEMP 37.3; O2SAT 96
--- NOTE | 2020-07-09 14:39 | PC.NURSE ---
Per Dr. Araujo- Pt bladder scan was due to tumor and not due to urine retention. He placed a 16 [place] mendes. It is draining a small amount of urine.
--- NOTE | 2020-07-09 15:34 | PM.IMPN ---
Progress Note: A&P Assessment and Plan (1) Pneumonia: Code(s): J18.9 - Pneumonia, unspecified organism Status: Acute Assessment and Plan: Patient was empirically started on Azithromycin. I spoke with the patient and her Avi in the stated that they would rather be on antibiotics at this time. I explained that this could possibly be atelectasis since she has been so weak and has been bedbound. We also discussed possibility of covid 19 and Avi states that the patient has not been any when she stays at home unless she has a doctor's appointment. He has not had any exposure to any COVID-19. She has no fever at this time 07/09/20 15:34 patient is 69-year-old female with carcinoid tumor metastasis to the liver patient had be on chemotherapy and radiation therapy currently has stopped all her treatment, patient was brought to the emergency department for further evaluation as patient is unable to tolerate p.o. intake, tired fatigue and constant pain, patient is being gently hydrated, today patient family and patient herself have decided to be admitted under hospice care, will continue to monitor patient overnight, the patient home tomorrow to be admitted under hospice (2) Acute dehydration: Code(s): E86.0 - Dehydration Status: Acute Assessment and Plan: continue with IV fluids patient has a poor appetite. Her abdomen is tight distended. She has been nauseated will continue with IV fluids and anti nausea medicine I did ask for dietary consult. The patient states that she is taking supplements. (3) Fatigue: Qualifiers: Fatigue type: chronic, unspecified Qualified Code(s): R53.82 - Chronic fatigue, unspecified Code(s): R53.83 - Other fatigue Status: Acute Assessment and Plan: Could be related to bacterial infection she recently was treated for UTI as well. Could be due to the cancer could be due to dehydration. (4) Carcinoid tumor: Qualifiers: Carcinoid tumor malignancy status: malignant Carcinoid tumor location: small intestine Code(s): D3A.00 - Benign carcinoid tumor of unspecified site Status: Acute Assessment and Plan: We discussed hospice. However the stated that the patient typically gets an IV infusion about every other week and she would not be able to do that with hospice. So this time they are going to decline hospice but the patient is a DNR. Will continue to make her as comfortable as possible. She is not having any discomfort at this time we discussed IV morphine and Ativan. Her Smith bring her home medications tomorrow to verify them. (5) Multiple sclerosis: Code(s): G35 - Multiple sclerosis Status: Chronic Assessment and Plan: The patient is on lutein, garlic, zinc and Biotene. (6) Essential (primary) hypertension: Code(s): I10 - Essential (primary) hypertension Status: Chronic Assessment and Plan: Continue with losartan and clonidine (7) Anxiety: Code(s): F41.9 - Anxiety disorder, unspecified Status: Chronic Assessment and Plan: p.r.n. anxiety (8) CAD (coronary artery disease): Code(s): I25.10 - Atherosclerotic heart disease of [place] coronary artery without angina pectoris Status: Chronic Assessment and Plan: the patient is on aspirin Atorvastatin but I am holding her atrial for statin due to her weakness. (9) Hyperlipidemia: Code(s): E78.5 - Hyperlipidemia, unspecified Status: Chronic Assessment and Plan: I am holding her atorvastatin because of the weakness. She does have a history of coronary artery disease with 1 cardiac stent. She is also on an aspirin so continue with that. (10) Hypothyroidism: Code(s): E03.9 - Hypothyroidism, unspecified Status: Chronic Assessment and Plan: Check thyroid level and continue with levothyroxine Subjective Date
[2020-07-09 20:31] VITALS: O2SAT 95
[2020-07-09 22:00] VITALS: BP 125/63; PULSE 79; RESP 16; TEMP 35.9; O2SAT 94
[2020-07-10] MEDS: MORPHINE SULFATE 2 MG/ML INJ IV PUSH ×3 (02:58→09:35)
[2020-07-10 06:00] VITALS: BP 106/54; PULSE 64; RESP 18; TEMP 36.1; O2SAT 97
[2020-07-10] MEDS: LEVOTHYROXINE SODIUM 50 MCG TABLET PO (06:17)
[2020-07-10] MEDS: ZINC SULFATE 220 MG CAPSULE PO (09:35)
[2020-07-10] MEDS: NITROFURANTOIN MONOHYD MACROCR 100 MG CAP PO (09:35)
[2020-07-10] MEDS: LOSARTAN POTASSIUM 100 MG TABLET PO (09:35)
[2020-07-10] MEDS: ASPIRIN 325 MG ENTERIC TABLET PO (09:35)
[2020-07-10 09:57] LABS: Basophils Percent Auto 0.3 % (0.2-1.2); Eosinophils Percent Auto 0.1 % (0-4.4); Hematocrit 37.8 % (37.0-47.0); Hemoglobin 13.2 g/dL (12.0-15.0); Immature Granulocyte Absolute 0.04 K/mm3 (0.00-0.031); Immature Granulocyte Percent A 0.4 % (0-0.5); Lymphocytes Absolute Auto 0.87 K/mm3 (0.9-3.2); Lymphocytes Percent Auto 8.9 % (18.3-44.2); Mean Corpuscular HGB Conc 34.9 g/dl (32-36); Mean Corpuscular Hemoglobin 32.4 pg (26-34); Mean Corpuscular Volume 92.6 fl (80-100); Mean Platelet Volume 10.6 fl (7.4-10.4); Monocytes Absolute Auto 0.8 K/mm3 (0.1-0.6); Monocytes Percent Auto 8.4 % (2.6-8.5); Neutrophils Percent Auto 81.9 % (45.5-73.1); Platelet Count Result 235 k/mm3 (150-375); Red Blood Count 4.08 M/mm3 (4.2-5.4); White Blood Count 9.8 K/mm3 (4.5-10.0)
[2020-07-10 10:11] LABS: Alanine Aminotransferase 15 U/L (4-35); Albumin Level 2.8 g/dL (3.5-5.1); Alkaline Phosphatase 665 U/L (38-126); Anion Gap 6 mmol/L (8-16); Aspartate Amino Transferase 76 U/L (14-36); Bilirubin,Total 2.8 mg/dL (0.2-1.3); Blood Urea Nitrogen 25 mg/dL (7-17); Calcium 7.9 mg/dL (8.4-10.2); Carbon Dioxide 26 mmol/L (22-30); Chloride 101 mmol/L (98-107); Estimated CRCL calculation 36 ml/min; Estimated Glomerular Filt Rate 44; Glucose 95 mg/dL (65-105); Sodium 133 mmol/L (137-145)
[2020-07-10] MEDS: HEPARIN SOD FLUSH 500 UNITS/5 ML SYRINGE IV PUSH (10:55)
--- NOTE | 2020-07-10 11:07 | PM.DS ---
DS: Admitting Diagnosis Admitting Diagnosis Admitting Diagnosis: pneumonia, dehydration DS: Discharge Diagnosis Discharge Diagnosis (1) Pneumonia: Code(s): J18.9 - Pneumonia, unspecified organism Status: Acute Assessment and Plan: Patient was empirically started on Azithromycin. I spoke with the patient and her Avi in the stated that they would rather be on antibiotics at this time. I explained that this could possibly be atelectasis since she has been so weak and has been bedbound. We also discussed possibility of covid 19 and Avi states that the patient has not been any when she stays at home unless she has a doctor's appointment. He has not had any exposure to any COVID-19. She has no fever at this time 07/09/20 15:34 patient is 69-year-old female with carcinoid tumor metastasis to the liver patient had be on chemotherapy and radiation therapy currently has stopped all her treatment, patient was brought to the emergency department for further evaluation as patient is unable to tolerate p.o. intake, tired fatigue and constant pain, patient is being gently hydrated, today patient family and patient herself have decided to be admitted under hospice care, will continue to monitor patient overnight, the patient home tomorrow to be admitted under hospice (2) Acute dehydration: Code(s): E86.0 - Dehydration Status: Acute Assessment and Plan: continue with IV fluids patient has a poor appetite. Her abdomen is tight distended. She has been nauseated will continue with IV fluids and anti nausea medicine I did ask for dietary consult. The patient states that she is taking supplements. (3) Fatigue: Qualifiers: Fatigue type: chronic, unspecified Qualified Code(s): R53.82 - Chronic fatigue, unspecified Code(s): R53.83 - Other fatigue Status: Acute Assessment and Plan: Could be related to bacterial infection she recently was treated for UTI as well. Could be due to the cancer could be due to dehydration. (4) Carcinoid tumor: Qualifiers: Carcinoid tumor malignancy status: malignant Carcinoid tumor location: small intestine Code(s): D3A.00 - Benign carcinoid tumor of unspecified site Status: Acute Assessment and Plan: We discussed hospice. However the stated that the patient typically gets an IV infusion about every other week and she would not be able to do that with hospice. So this time they are going to decline hospice but the patient is a DNR. Will continue to make her as comfortable as possible. She is not having any discomfort at this time we discussed IV morphine and Ativan. Her Smith bring her home medications tomorrow to verify them. (5) Multiple sclerosis: Code(s): G35 - Multiple sclerosis Status: Chronic Assessment and Plan: The patient is on lutein, garlic, zinc and Biotene. (6) Essential (primary) hypertension: Code(s): I10 - Essential (primary) hypertension Status: Chronic Assessment and Plan: Continue with losartan and clonidine (7) Anxiety: Code(s): F41.9 - Anxiety disorder, unspecified Status: Chronic Assessment and Plan: p.r.n. anxiety (8) CAD (coronary artery disease): Code(s): I25.10 - Atherosclerotic heart disease of [place] coronary artery without angina pectoris Status: Chronic Assessment and Plan: the patient is on aspirin Atorvastatin but I am holding her atrial for statin due to her weakness. (9) Hyperlipidemia: Code(s): E78.5 - Hyperlipidemia, unspecified Status: Chronic Assessment and Plan: I am holding her atorvastatin because of the weakness. She does have a history of coronary artery disease with 1 cardiac stent. She is also on an aspirin so continue with that. (10) Hypothyroidism: Code(s): E03.9 - Hypothyroidism, unspecified Status: Chronic
[2020-07-10 11:48] LABS: Free T4 Free Thyroxine Reflex 1.35 ng/dL (0.78-2.19)
[2020-07-10 12:31] LABS: Total Triiodothyronine (T3) 0.57 NG/ML (0.97-1.69)
== END 2020-07-10 11:34 | disposition hospice, home (50) ==
LOC: ANHED 16:39 → ANH2MED 17:36
PROVIDERS: Family Medicine; Nurse Practitioner; Admitting Provider Family Medicine; Emergency Provider Emergency Medicine; PCP Internal Medicine; Visit Provider Family Medicine
DX: J18.9 Pneumonia, unspecified organism (principal); E86.0 Dehydration; R53.83 Other fatigue; C7A.019 Malignant carcinoid tumor of the small intestine, unspecified portion; C7B.02 Secondary carcinoid tumors of liver; G35 Multiple sclerosis; I10 Essential (primary) hypertension; F41.9 Anxiety disorder, unspecified; I25.10 Atherosclerotic heart disease of native coronary artery without angina pectoris; E78.5 Hyperlipidemia, unspecified; E03.9 Hypothyroidism, unspecified; F17.210 Nicotine dependence, cigarettes, uncomplicated; N39.0 Urinary tract infection, site not specified; R32 Unspecified urinary incontinence; R15.9 Full incontinence of feces; G47.33 Obstructive sleep apnea (adult) (pediatric); Z66 Do not resuscitate; Z79.82 Long term (current) use of aspirin; Z79.899 Other long term (current) drug therapy; Z88.0 Allergy status to penicillin; Z95.5 Presence of coronary angioplasty implant and graft
CPT/HCPCS: 36415; 71046; 80048; 80053; 83735; 84439; 84443; 84480; 84484; 85025; 85610; 85730; 93005; 96361; 96365; 96366; 96375; 96376; 99285; A9270; G0378; J0456; J1642; J2270; J2405; J2765; J7030